=== PATIENT | male | born 1955 | race Caucasian/White ===

== ENCOUNTER 2018-10-12 20:38 | Observation (INO) ==
[2018-10-12] MEDS ORDERED: Aspirin 325 MG Tablet PO ONE (21:37)
--- NOTE | 2018-10-12 21:46 | ED ---
HPI General Chief Complaint: Chest Pain Stated Complaint: chest pain Time Seen by Provider: 10/12/18 21:15 Source: patient Mode of arrival: ambulatory Limitations: no limitations History of Present Illness HPI narrative: 63 year old male with a past medical history of CAD s/p heart attack with stent placement in 2002 presents to the ED for evaluation of chest pain and RUQ pain. Patients states that he started having 3/10 substernal chest pressure while walking from the parking lot and [place] stairs [place] He says he started sweating profusely. He reports that the chest pain lessened with rest but the sweating lingered for much longer. He says that he has a nitroglycerin prescription but that he forgot to pack it when travelled here from [place] for vacation. He is currently being followed by a convention worker in [place] but states he hasn't had a stress test in a long time. He reports taking all his prescribed medications this morning. He reports having RUQ pain this afternoon after he had a shot of scotch. The pain is a 2/10 that has lingered since then. He states this pain has occurred off and on for months. He says that his stomach feels distended but denies nausea, vomiting, and changes in bowel movements. He denies shortness of breath, numbness and tingling. He is currently experiencing no chest pain. Related Data Home Medications Medication Instructions Recorded Confirmed B-complex with vitamin C [Super B 1 tab PO DAILY 10/12/18 10/12/18 Complex-Vitamin C] aspirin 81 mg PO DAILY 10/12/18 10/12/18 atorvastatin 80 mg PO DAILY 10/12/18 10/12/18 cholecalciferol (vitamin D3) 2,000 unit PO DAILY 10/12/18 10/12/18 [Vitamin D3] clopidogrel 75 mg PO DAILY 10/12/18 10/12/18 loratadine [Claritin] 10 mg PO DAILY 10/12/18 10/12/18 metoprolol succinate 25 mg PO DAILY 10/12/18 10/12/18 ramipril 2.5 mg PO DAILY 10/12/18 10/12/18 Previous Rx's Medication Instructions Recorded nitroglycerin 0.4 mg SL Q5M PRN #20 tab 10/12/18 Allergies Allergy/AdvReac Type Severity Reaction Status Date / Time bee venom protein (honey bee) Allergy Anaphylaxis Verified 10/12/18 21:04 [Bee sting] Penicillins Allergy Rash Verified 10/12/18 21:04 shellfish derived Allergy Anaphylaxis Verified 10/12/18 21:26 Review of Systems ROS: all other systems reviewed are negative [facility] Medical History Medical History High cholesterol (Acute) Hypertension (Acute) Surgical History Surgical History H/O discectomy (Acute) H/O heart artery stent (Acute) H/O knee surgery (Acute) History of appendectomy (Acute) Social History Social History Substance History: No History of Abuse Smoking Status: Former smoker Tobacco Type: Cigarettes How Often Do You Have a Drink Containing Alcohol: 2 to 3 times a week Recent Travel in [facility] within the Last 8 Weeks: Yes Recent Out of Country Travel within the Last 8 Weeks: Yes Immunization History Tetanus Immunization: >5 Years Exam Narrative Exam Narrative: GENERAL: Well-appearing in no distress. SKIN: Focused skin assessment warm/dry. HEAD: Atraumatic. Normocephalic. EYES: Pupils equal and round. No scleral icterus. No injection or drainage. ENT: No nasal bleeding or discharge. Mucous membranes pink and moist. Tongue is midline. No uvula deviation. NECK: Trachea midline. No JVD. CARDIOVASCULAR: Regular rate and rhythm. No murmur appreciated. RESPIRATORY: No accessory muscle use. Clear to auscultation. Breath sounds equal bilaterally. GASTROINTESTINAL: Abdomen soft, non-tender, nondistended. Hepatic and splenic margins not palpable. MUSCULOSKELETAL: No obvious deformities. No clubbing. No cyanosis. No edema. Full range of motion of the upper and lower extremities bilaterally. 2+ pulses bilaterally. NEUROLOGICAL: Awake and alert. No obvious cranial nerve deficits. Motor grossly within normal limits. Normal speech. PSYCHIATRIC: Appropriate mood and affect; insight and judgment normal. Course Initial Documented Vital Signs Temperature 98.8 F 10/12/18 21:05 Pulse Rate 87 10/12/18 21:05 Respiratory Rate 16 10/12/18 21:05 Blood Pressure 159/94 H 10/12/18 21:05 Pulse Oximetry 96 10/12/18 21:05 Last Documented Vital Signs Temperature 98.8 F 10/12/18 21:05 Pulse Rate 80 10/12/18 21:36 Respiratory Rate 19 10/12/18 21:29 Blood Pressure 172/99 H 10/12/18 21:29 Pulse Oximetry 95 10/12/18 21:37 Clinical Decision Support HEART Score Questions History: Highly suspicious EKG: Normal Age: 45-64 years Risk Factors: 3 or more Risk Factors or Hx of Atherosclerotic Disease Initial Troponin: Normal Limit Heart Score HEART Score: 5 Medical Decision Making ODILON Attestation ODILON supervised visit: Yes Attestation: I, Dr. Isaac, have reviewed the advance practice practitioner's documentation and am in agreement, met with the patient face to face, made the diagnosis, and the medical decision making was done by me. *My assessment and Findings: Pt is a very pleasant 63 yo M w cp [place] just prior he had a coffee and a five hour energy drink and before that a scotch was imbibed. diaphoresis accompanied and CP. pt's convention worker refused to call in [facility] and advised pt to come to ed. cad dx'd about 15 years prior and a stent was placed then. pt currently carries diagnoses of htn and hld with bmi of 42.5. compliance with aspirin reported along with plavix. ekg shows no twi or flatter or ST elevation. tn < 0.02. story is suspicious for myocardial ischemia. pt agrees to generator operator protocol. last stress test was five years prior. pt is visiting from out of town for the races this weekend. Estimated HEART score is 5. MDM Narrative Medical decision making narrative: 63-year-old male who presents to the ED for evaluation of chest pain. Labs and imaging ordered. aspirin and nitro given. labs and imaging showed no sign of acute disease. Case was discussed my attending Dr. Isaac who evaluated the patient himself and recommends admission to chest pain center. Patient initially was hesitant to be admitted but after his discussion with Dr. Isaac he decided to stay. I think this is reasonable as patient does have multiple comorbidities. Patient agrees to be admitted to chest pain center for chest pain center rule out. Patient was admitted chest pain center by me. Medical Screen Exam Complete: Yes Emergency Medical Condition: Yes Differential Diagnosis Differential Diagnosis: Acute chest pain versus ACS versus an STEMI versus gallbladder disease versus pancreatitis Medical Records Medical records reviewed: Yes I reviewed the patient's medical records. Lab Data Lab results reviewed: Yes I reviewed the patient's lab results. Result diagrams: 10/12/18 21:33 10/12/18 21:33 Lab Results 10/12/18 10/12/18 10/12/18 Range/Units 21:33 21:33 21:33 WBC 9.0 (4.0-11.0) th/mm3 RBC 5.06 (4.50-5.90) mil/mm3 Hgb 16.0 (13.0-17.0) gm/dL Hct 46.3 (39.0-51.0) % MCV 91.4 (80.0-100.0) fL MCH 31.5 (27.0-34.0) pg MCHC 34.5 (32.0-36.0) % RDW 13.6 (11.6-17.2) % Plt Count 212 (150-450) th/mm3 MPV 7.6 (7.0-11.0) fL Neut % (Auto) 63.7 (16.0-70.0) % Lymph % (Auto) 23.4 (9.0-44.0) % [place] % (Auto) 9.7 H (0.0-8.0) % Eos % (Auto) 2.7 (0.0-4.0) % Baso % (Auto) 0.5 (0.0-2.0) % Neut # (Auto) 5.7 (1.8-7.7) th/mm3 Lymph # (Auto) 2.1 (1.0-4.8) th/mm3 [place] # (Auto) 0.9 (0.0-0.9) th/mm3 Eos # (Auto) 0.2 (0.0-0.4) th/mm3 Baso # (Auto) 0.0 (0.0-0.2) th/mm3 WBC Differential . Differential Comment Auto diff final PT (9.8-11.6) sec INR Ratio APTT (23.4-31.7) sec Sodium 142 (136-145) meq/L Potassium 4.2 (3.5-5.1) meq/L Chloride 107 (98-107) meq/L Carbon Dioxide 28.5 (21.0-32.0) meq/L Anion Gap 7 (5-15) meq/L BUN 21 H (7-18) mg/dL Creatinine 1.09 (0.60-1.30) mg/dL Estimated GFR 68 L (>89) mL/min Random Glucose 101 (74-106) mg/dL Calcium 9.5 (8.5-10.1) mg/dL Total Bilirubin 0.6 (0.2-1.0) mg/dL AST 27 (15-37) U/L ALT 60 (12-78) U/L Alkaline Phosphatase 73 (45-117) U/L Troponin I Less than 0.02 L (0.02-0.05) ng/mL B-Natriuretic Peptide 16 (0-100) pg/mL Total Protein 8.0 (6.4-8.2) g/dL Albumin 4.4 (3.4-5.0) g/dL Lipase 182 (73-393) U/L Serum Alcohol Less than 3 (0-5) mg/dL 10/12/18 Range/Units 21:33 WBC (4.0-11.0) th/mm3 RBC (4.50-5.90) mil/mm3 Hgb (13.0-17.0) gm/dL Hct (39.0-51.0) % MCV (80.0-100.0) fL MCH (27.0-34.0) pg MCHC (32.0-36.0) % RDW (11.6-17.2) % Plt Count (150-450) th/mm3 MPV (7.0-11.0) fL Neut % (Auto) (16.0-70.0) % Lymph % (Auto) (9.0-44.0) % [place] % (Auto) (0.0-8.0) % Eos % (Auto) (0.0-4.0) % Baso % (Auto) (0.0-2.0) % Neut # (Auto) (1.8-7.7) th/mm3 Lymph # (Auto) (1.0-4.8) th/mm3 [place] # (Auto) (0.0-0.9) th/mm3 Eos # (Auto) (0.0-0.4) th/mm3 Baso # (Auto) (0.0-0.2) th/mm3 WBC Differential Differential Comment PT 10.2 (9.8-11.6) sec INR 1.0 Ratio APTT 26.2 (23.4-31.7) sec Sodium (136-145) meq/L Potassium (3.5-5.1) meq/L Chloride (98-107) meq/L Carbon Dioxide (21.0-32.0) meq/L Anion Gap (5-15) meq/L BUN (7-18) mg/dL Creatinine (0.60-1.30) mg/dL Estimated GFR (>89) mL/min Random Glucose (74-106) mg/dL Calcium (8.5-10.1) mg/dL Total Bilirubin (0.2-1.0) mg/dL AST (15-37) U/L ALT (12-78) U/L Alkaline Phosphatase (45-117) U/L Troponin I (0.02-0.05) ng/mL B-Natriuretic Peptide (0-100) pg/mL Total Protein (6.4-8.2) g/dL Albumin (3.4-5.0) g/dL Lipase (73-393) U/L Serum Alcohol (0-5) mg/dL Imaging Data Attestation: I personally reviewed and interpreted this imaging study as follows : Radiologist's impression: Chest X-Ray 10/12/18 21:30 CONCLUSION: The lungs are clear. ECG Data EKG Prior to Arrival: No Attestation: I personally reviewed and interpreted this ECG as follows: Prior ECG tracings: not available for review Interpretation: Normal sinus rhythm, 83 bpm, normal intervals, P mitrale. Incomplete right bundle branch block Discharge Plan Discharge Disposition Patient Disposition: ED Admit(ED Internal Use Only) Discharge Condition Condition: Stable Discharge Order Discharge Orders: ED Use Only Admit Order (Routine); Ordered 10/12/18 Ordered By: Rinku Jasso Discharge Details Diagnosis: Chest pain, rule out acute myocardial infarction Physicians Team ED Provider: Taz Isaac ED Midlevel Provider: Rinku Jasso Primary Care Provider: Primary Care Physici,Yenifer Rxs /Orders / Referrals /Forms Prescriptions: New nitroglycerin 0.4 mg tablet, sublingual 0.4 mg SL Q5M PRN (Reason: chest pain) Qty: 20 RF: 0 No Action atorvastatin 80 mg Tablet 80 mg PO DAILY RF: 0 clopidogrel 75 mg Tablet 75 mg PO DAILY RF: 0 ramipril 2.5 mg Capsule 2.5 mg PO DAILY RF: 0 aspirin 81 mg Tablet,Chewable 81 mg PO DAILY RF: 0 metoprolol succinate 25 mg Tablet Extended Release 24 Hr 25 mg PO DAILY RF: 0 loratadine [Claritin] 10 mg Tablet 10 mg PO DAILY RF: 0 B-complex with vitamin C [Super B Complex-Vitamin C] Tablet 1 tab PO DAILY RF: 0 cholecalciferol (vitamin D3) [Vitamin D3] 2,000 unit Capsule 2,000 unit PO DAILY RF: 0 Discharge Instructions Patient Printed Instructions: Chest Pain (ED) Additional Instructions: Take your medications as prescribed. Follow-up with primary care doctor. See ED if worsening symptoms. Status ED Status: Admitted Observation Patient
[2018-10-12 21:51] LABS: Baso % (Auto) 0.5 % (0.0-2.0); Eos # (Auto) 0.2 th/mm3 (0.0-0.4); Eos % (Auto) 2.7 % (0.0-4.0); Hematocrit 46.3 % (39.0-51.0); Lymph # (Auto) 2.1 th/mm3 (1.0-4.8); Lymph % (Auto) 23.4 % (9.0-44.0); Mean Corpuscular HGB Conc 34.5 % (32.0-36.0); Mean Corpuscular Hemoglobin 31.5 pg (27.0-34.0); Mean Corpuscular Volume 91.4 fL (80.0-100.0); Mean Platelet Volume 7.6 fL (7.0-11.0); Mono # (Auto) 0.9 th/mm3 (0.0-0.9); Mono % (Auto) 9.7 % (0.0-8.0); Neut # (Auto) 5.7 th/mm3 (1.8-7.7); Neut % (Auto) 63.7 % (16.0-70.0); Platelet Count 212 th/mm3 (150-450); Red Blood Count 5.06 mil/mm3 (4.50-5.90); Red Cell Distribution Width 13.6 % (11.6-17.2)
--- NOTE | 2018-10-12 21:51 | XR ---
EXAM DATE: 10/12/2018 9:48 PM EST AGE/SEX: 63 years / Male INDICATIONS: Chest pain. CLINICAL DATA: This is the patient's initial encounter. Patient reports that signs and symptoms have been present for 1 day and indicates a pain score of 4/10. MEDICAL/SURGICAL HISTORY: Hypertension. Myocardial infarction. Appendectomy. Coronary artery stent. C-spine. Right knee. COMPARISON: No prior exams available for comparison. FINDINGS: A single AP view of the chest demonstrates the lungs to be symmetrically aerated without evidence of mass, infiltrate or effusion. The cardiomediastinal contours are unremarkable. Osseous structures a re intact. CONCLUSION: The lungs are clear. Electronically signed by: Reza Olmstead MD Board Certified Radiologist 10/12/2018 9:50 PM EST
[2018-10-12 22:06] LABS: Alanine Aminotransferase 60 U/L (12-78); Albumin 4.4 g/dL (3.4-5.0); Anion Gap 7 meq/L (5-15); Aspartate Aminotransferase 27 U/L (15-37); Blood Urea Nitrogen 21 mg/dL (7-18); Calcium 9.5 mg/dL (8.5-10.1); Carbon Dioxide 28.5 meq/L (21.0-32.0); Chloride 107 meq/L (98-107); Glomerular Filtration Rate 68 mL/min (>89); Glucose,Random 101 mg/dL (74-106); Lipase 182 U/L (73-393); Potassium 4.2 meq/L (3.5-5.1); Sodium 142 meq/L (136-145)
[2018-10-12 22:08] LABS: Activated Partial Thrombo Time 26.2 sec (23.4-31.7); Prothrombin Time 10.2 sec (9.8-11.6)
[2018-10-12 22:10] LABS: Alkaline Phosphatase 73 U/L (45-117)
[2018-10-12] MEDS ORDERED: Acetaminophen 500 MG Tablet PO PRN (23:32)
[2018-10-13 01:14] LABS: Creatine Kinase 100 U/L (39-308)
[2018-10-13 03:35] VITALS: O2SAT 96
[2018-10-13 05:24] LABS: Creatine Kinase 82 U/L (39-308)
[2018-10-13 07:27] VITALS: BP 110/76; PULSE 61; RESP 18; TEMP 98.3
[2018-10-13] MEDS ORDERED: Regadenoson Inj 0.4 MG/5 ML Syringe IV.PUSH ONE (08:05)
--- NOTE | 2018-10-13 08:52 | P.HPCA ---
History of Present Illness Primary Care Physician: No Primary Care Physician Chief Complaint: Chest pain History of Present Illness: This is a 63-year-old male with history of CAD setting of stent placed in 2002 [place] that presents to ED complaining of a chest discomfort that began while he was walking up bleachers at the speed [place] the races. He describes it as a pressure with diaphoresis. Discomfort was in the center of his chest and did not radiate. Lasted about an hour. 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 Believes last stress test has been a couple years ago. Past medical history: CAD with stent in 2002. Hypertension and hyperlipidemia. Denies diabetes. Family history: Denies family history of CAD. Social history: Patient quit smoking cigarettes 20 years ago. - Diagnosis (1) Chest pain (2) History of coronary artery disease (3) History of heart artery stent (4) Hypertension (5) Hyperlipidemia Review of Systems General: Patient denies fevers, chills, and recent travel. HEENT: Patient denies headache, sore throat, difficulty swallowing. Cardiovascular: Has the chest discomfort as mentioned above. Denies sensation of heart beating rapidly or irregularly. No syncope. He was diaphoretic. Respiratory: Denies shortness of breath or inspirational chest discomfort. Denies coughing wheezing or hemoptysis. GI: Patient denies nausea, vomiting, diarrhea, abdominal pain, bloody stools. Musculoskeletal: Patient denies joint pain or edema. Denies calf pain or edema. Neurovascular: Patient denies numbness, tingling, weakness in extremities. Denies headache. Endocrine: Denies polyuria and polydipsia. Hematologic: Denies easy bruising. Skin: Denies rash or itching. PMFSH - History History Provided By: Patient - Medical History Medical History: Medical History (Last Reviewed 10/12/18 @ 21:42 by SHARRI Kevin) High cholesterol Hypertension - Surgical History Surgical History: Surgical History (Last Reviewed 10/12/18 @ 21:42 by SHARRI Kevin) H/O discectomy H/O heart artery stent H/O knee surgery History of appendectomy - Tobacco History Second Hand Smoke Exposure: No Tobacco Use In Past 30 Days: No Smoking Status: Former smoker Tobacco Type: Cigarettes - Alcohol History How Often Do You Have a Drink Containing Alcohol: 4 or more times a week - Substance Use History Substance History: No History of Abuse - Travel History Recent Travel in the [place] Within the Last 8 Weeks: Yes Recent Travel Out of the Country Within the Last 8 Weeks: Yes - Immunization History Tetanus Immunization: >5 Years Medications and Allergies Active Medications: Active Medications Acetaminophen (Tylenol) 500 mg PO Q4H PRN PRN Reason: HEADACHE Hydrocodone Bitart/Acetaminophen ([place] 7.5/325) 1 tab PO Q4H PRN PRN Reason: PAIN SCALE 1 TO 7 Albuterol (Albuterol Neb (Prn)) 2.5 mg NEB UNSCH PRN PRN Reason: SHORTNESS OF BREATH/WHEEZING Albuterol (Duoneb Neb (Prn)) 1 ampul NEB UNSCH PRN PRN Reason: SHORTNESS OF BREATH/WHEEZING Aspirin (Aspirin Chew) 81 mg PO DAILY [facility] Atorvastatin Calcium (Lipitor) 80 mg PO DAILY [facility] Clopidogrel Bisulfate (Plavix) 75 mg PO DAILY [facility] Metoprolol Succinate (Toprol Xl) 25 mg PO DAILY [facility] Ramipril (Altace) 2.5 mg PO DAILY [facility] Sodium Chloride (Ns Flush) 2 ml IV.FLUSH BID [facility] Sodium Chloride (Ns Flush) 2 ml IV.FLUSH PRN PRN PRN Reason: FLUSH AFTER USING IV ACCESS Allergies Allergy/AdvReac Type Severity Reaction Status Date / Time bee venom protein (honey bee) Allergy Anaphylaxis Verified 10/12/18 21:04 [Bee sting] Penicillins Allergy Rash Verified 10/12/18 21:04 shellfish derived Allergy Anaphylaxis Verified 10/12/18 21:26 Home Medications Medication Instructions Recorded Confirmed Type B-complex with vitamin C [Super B 1 tab PO DAILY 10/12/18 10/12/18 History Complex-Vitamin C] aspirin 81 mg PO DAILY 10/12/18 10/12/18 History atorvastatin 80 mg PO DAILY 10/12/18 10/12/18 History cholecalciferol (vitamin D3) 2,000 unit PO DAILY 10/12/18 10/12/18 History [Vitamin D3] clopidogrel 75 mg PO DAILY 10/12/18 10/12/18 History loratadine [Claritin] 10 mg PO DAILY 10/12/18 10/12/18 History metoprolol succinate 25 mg PO DAILY 10/12/18 10/12/18 History ramipril 2.5 mg PO DAILY 10/12/18 10/12/18 History Exam Vital signs: Vital Signs 10/12/18 21:05 10/12/18 21:29 10/12/18 21:36 Temperature 98.8 F Pulse Rate 87 83 80 Respiratory Rate 16 19 Blood Pressure 159/94 H 172/99 H Pulse Oximetry 96 95 10/12/18 21:37 10/12/18 21:46 10/13/18 01:58 Temperature Pulse Rate 80 Respiratory Rate 16 16 Blood Pressure 138/86 Pulse Oximetry 95 96 10/13/18 02:32 10/13/18 03:35 10/13/18 04:00 Temperature 97.6 F 97.7 F Pulse Rate 64 69 58 L Respiratory Rate 16 16 Blood Pressure 126/78 114/72 Pulse Oximetry 98 96 10/13/18 06:00 10/13/18 07:06 10/13/18 07:25 Temperature 98.3 F Pulse Rate 66 64 61 Respiratory Rate 18 Blood Pressure 110/76 Pulse Oximetry 96 Intake & Output 10/12/18 10/13/18 10/13/18 18:59 06:59 18:59 Output Total Balance - Weight 138.346 kg Output: Urine Narrative: GENERAL: This is a well-nourished, well-developed patient, in no apparent distress. Patient speaks in clear complete sentences. Patient is pleasant. HEENT: Head is atraumatic and normocephalic. Neck is supple without lymphadenopathy and trachea is midline. No JVD or carotid bruits. CARDIOVASCULAR: Regular rate and rhythm without murmurs, gallops, or rubs. RESPIRATORY: Clear to auscultation. Breath sounds equal bilaterally. No wheezes , rales, or rhonchi. Chest wall is nontender. No use of accessory muscles. GASTROINTESTINAL: Abdomen is nontender, nondistended. Abdomen soft. No obvious pulsatile mass or bruit. No CVA tenderness. Strong femoral pulses bilaterally. Normal bowel sounds in all quadrants. MUSCULOSKELETAL: Patient is moving upper and lower extremities freely. No calf tenderness or edema, no Homans sign. Strong pulses in upper and lower extremities. NEUROLOGICAL: Patient is alert and oriented. Cranial nerves 2-12 are grossly intact. No focal deficits and speech is clear. SKIN: No rash and turgor is normal. Results 10/12/18 21:33 02/14/19 21:33 Cardiac Enzymes 10/12/18 10/12/18 10/13/18 Range/Units 21:33 21:33 00:14 AST 27 (15-37) U/L Troponin I Less than 0.02 L Less than 0.02 L (0.02-0.05) ng/mL B-Natriuretic Peptide 16 (0-100) pg/mL 10/13/18 Range/Units 03:15 AST (15-37) U/L Troponin I Less than 0.02 L (0.02-0.05) ng/mL B-Natriuretic Peptide (0-100) pg/mL Coagulation 10/12/18 10/12/18 Range/Units 21:33 21:33 PT 10.2 (9.8-11.6) sec APTT 26.2 (23.4-31.7) sec B-Natriuretic Peptide 16 (0-100) pg/mL CBC 10/12/18 Range/Units 21:33 WBC 9.0 (4.0-11.0) th/mm3 RBC 5.06 (4.50-5.90) mil/mm3 Hgb 16.0 (13.0-17.0) gm/dL Hct 46.3 (39.0-51.0) % Plt Count 212 (150-450) th/mm3 Neut # (Auto) 5.7 (1.8-7.7) th/mm3 Lymph # (Auto) 2.1 (1.0-4.8) th/mm3 [place] # (Auto) 0.9 (0.0-0.9) th/mm3 Eos # (Auto) 0.2 (0.0-0.4) th/mm3 Baso # (Auto) 0.0 (0.0-0.2) th/mm3 Comprehensive Metabolic Panel 10/12/18 Range/Units 21:33 Sodium 142 (136-145) meq/L Potassium 4.2 (3.5-5.1) meq/L Chloride 107 (98-107) meq/L Carbon Dioxide 28.5 (21.0-32.0) meq/L BUN 21 H (7-18) mg/dL Creatinine 1.09 (0.60-1.30) mg/dL Calcium 9.5 (8.5-10.1) mg/dL AST 27 (15-37) U/L ALT 60 (12-78) U/L Alkaline Phosphatase 73 (45-117) U/L Total Protein 8.0 (6.4-8.2) g/dL Albumin 4.4 (3.4-5.0) g/dL Intake and Output 10/12/18 10/13/18 10/13/18 22:59 06:59 14:59 Output Total Balance - Output: Urine Other: Weight 138.346 kg - Imaging and Cardiology Imaging: Impressions Chest X-Ray 10/12/18 21:30 CONCLUSION: The lungs are clear. EKG interpretations - EKG EKG shows: sinus rhythm (EKGs are sinus rhythm without significant ST segment depressions or elevations.) Caprini VTE Risk Assessment Caprini VTE Risk Assessment: Moderate/High Risk (score >= 2) Caprini Risk Assessment Model: Point Value = 1 Point Value = 2 Point Value = 3 Point Value = 5 Age 41-60 Minor surgery BMI > 25 kg/m2 Swollen legs Varicose veins or History of unexplained or recurrent spontaneous Oral contraceptives or hormone replacement Sepsis (< 1 month) Serious lung disease, including pneumonia (< 1 month) Abnormal pulmonary function Acute myocardial infarction Congestive heart failure (< 1 month) History of inflammatory bowel disease Medical patient at bed rest Age 61-74 Arthroscopic surgery Major open surgery (> 45 min) Laparoscopic surgery (> 45 min) Malignancy Confined to bed (> 72 hours) Immobilizing plaster cast Central venous access Age >= 75 History of VTE Family history of VTE Factor V Leiden Prothrombin [id number] Lupus anticoagulant Anticardiolipin antibodies Elevated serum homocysteine Heparin-induced thrombocytopenia Other congenital or acquired thrombophilia Stroke (< 1 month) Elective arthroplasty Hip, pelvis, or leg fracture Acute spinal cord injury (< 1 month) Prophylaxis Regimen: Total Risk Factor Score Risk Level Prophylaxis Regimen 0-1 Low Early ambulation 2 Moderate Order ONE of the following: *Sequential Compression Device (SCD) *Heparin 5000 units SQ BID 3-4 Higher Order ONE of the following medications: *Heparin 5000 units SQ TID *Enoxaparin/Lovenox 40 mg SQ daily (WT < 150 kg, CrCl > 30 mL/min) *Enoxaparin/Lovenox 30 mg SQ daily (WT < 150 kg, CrCl > 10-29 mL/min) *Enoxaparin/Lovenox 30 mg SQ BID (WT < 150 kg, CrCl > 30 mL/min) AND/OR *Sequential Compression Device (SCD) 5 or more Highest Order ONE of the following medications: *Heparin 5000 units SQ TID (Preferred with Epidurals) *Enoxaparin/Lovenox 40 mg SQ daily (WT < 150 kg, CrCl > 30 mL/min) *Enoxaparin/Lovenox 30 mg SQ daily (WT < 150 kg, CrCl > 10-29 mL/min) *Enoxaparin/Lovenox 30 mg SQ BID (WT < 150 kg, CrCl > 30 mL/min) AND *Sequential Compression Device (SCD) Assessment and Plan - Assessment (1) Chest pain Code(s): R07.9 - Chest pain, unspecified Status: Acute (2) History of coronary artery disease Code(s): Z86.79 - Personal history of other diseases of the circulatory system Status: Acute (3) History of heart artery stent Code(s): Z95.5 - Presence of coronary angioplasty implant and graft Status: Acute (4) Hypertension Code(s): I10 - Essential (primary) hypertension Status: Acute (5) Hyperlipidemia Code(s): E78.5 - Hyperlipidemia, unspecified Status: Acute - Plan * Chest pain: Patient has had serial cardiac enzymes and EKGs for ruling out purposes and has been seen by Dr. Gordillo of cardiology in the chest pain center. A Rosalino protocol ETT was to be performed however patient declines this and would rather have a Lexiscan. Lexiscan has been ordered, patient will be discharged home if the stress test is nonischemic with instructions to follow- up with his metal machine operator and PCP. Return to ED for interval issues. * History of CAD: Patient has had a stent in 2002. This will be reassessed with stress testing. He will need to resume his medication and follow-up with his metal machine operator. * Hypertension: Continue medication. * Hyperlipidemia: Continue medication. Patient is stable at this time. He is agreeable to this plan. H&P: Quality - VTE Deep Vein Thrombosis/Pulmonary Embolism Present on Admission: No
[2018-10-13] MEDS ORDERED: Ramipril 2.5 MG Capsule PO SCH (09:00)
--- NOTE | 2018-10-13 10:23 | NM ---
EXAM DATE: 10/13/2018 10:11 AM EST AGE/SEX: 63 years / Male INDICATIONS:Angina. . Substernal chest pain and RUQ pain. CLINICAL DATA: This is the patient's initial encounter. Patient reports that signs and symptoms have been present for 1 day and indicates a pain score of 3/10. MEDICAL/SURGICAL HISTORY: Hypercholesterolemia. Hypertension. Coronary artery stent. CABG. Di scectomy. COMPARISON: No prior exams available for comparison. DOSE: 12 mCi Tc 99m Myoview at rest 35 mCi [id number] at stress 0.4 mg Lexiscan STRESS SYMPTOMS: Dyspnea. EJECTION FRACTION: 56 % TECHNIQUE: The patient underwent pharmacologic stress with infusion of prescribed dose. Continuous ECG tracing was monitored during stress. Gated SPECT imaging was performed after stress and conventi onal SPECT imaging was performed at rest. The examination was performed on a SPECT/CT scanner, both attenuation and non-corrected datasets were reviewed. FINDINGS: Distribution: The maximum perfused segment at stress is in the septal wall. Perfusion Study: There is mild decreased activity in the apex and inferoapical segment which correl ates with diaphragmatic attenuation seen on the raw data images. No reversible perfusion defects seen . Regional perfusion in the other myocardial segments is within 25%. The sum stress score is 4 (upper limits normal). Gated Study: There are intact wall motion and wall thickening without hypokinetic or dyskinetic segm ents. The ejection fraction is calculated at 56%. RISK CATEGORY: Low (<1% Annual Mortality Rate) CONCLUSION: 1. No evidence of stress-induced ischemia. 2. Intact wall motion with 56% ejection fraction. Electronically signed by: Reza Olmstead MD Board Certified Radiologist 10/13/2018 10:22 AM EST
--- NOTE | 2018-10-13 17:17 | TR ---
Date Performed: 10/13/2018 Time Performed: 09:29:36 DOCTOR: Steffanie Gordillo DRUG LIST: CLINICAL HISTORY: REASON FOR TEST: REASON FOR ENDING: OBSERVATION: CONCLUSION: Lexiscan stress test was performed under standard four minute protocol. Radionuclid e was injected one minute prior to ending the test. No electrocardiographic abormalities were present to suggest ischemia. Nuclear imaging and interpretation are pending. COMMENTS: Lexiscan stress test was performed under standard four minute protocol. Radionuclide was injected one minute prior to ending the test. No electrocardiographic abormalities were present t o suggest ischemia. Nuclear imaging and interpretation are pending.
--- NOTE | 2018-10-13 17:18 | ECG ---
Date Performed: 10/13/2018 Time Performed: 00:12:09 PTAGE: 63 years EKG: Sinus rhythm MARKED LEFT AXIS DEVIATION LOW QRS VOLTAGE IN PRECORDIAL LEADS PATTERN CONSISTENT WITH PULMONARY DIS EASE INCOMPLETE RIGHT BUNDLE BRANCH BLOCK ABNORMAL ECG Since PREVIOUS TRACING , no significant change noted PREVIOUS TRACIN10/12/2018 21.16 DOCTOR: Steffanie Gordillo Interpretating Date/Time 10/13/2018 17:16:46
--- NOTE | 2018-10-13 17:18 | ECG ---
Date Performed: 10/13/2018 Time Performed: 03:32:17 PTAGE: 63 years EKG: Sinus rhythm PATTERN CONSISTENT WITH PULMONARY DISEASE INCOMPLETE RIGHT BUNDLE BRANCH BLOCK LEFT ANTERIOR FASCICU LAR BLOCK ABNORMAL ECG Since PREVIOUS TRACING , no significant change noted PREVIOUS TRACIN10/13/2018 00.12 DOCTOR: Steffanie Gordillo Interpretating Date/Time 10/13/2018 17:16:34
--- NOTE | 2018-10-13 17:19 | ECG ---
Date Performed: 10/12/2018 Time Performed: 21:16:35 PTAGE: 63 years EKG: Sinus rhythm MARKED LEFT AXIS DEVIATION PATTERN CONSISTENT WITH PULMONARY DISEASE INCOMPLETE RIGHT BUNDLE BRANCH BLOCK ABNORMAL ECG NO PREVIOUS TRACING DOCTOR: Steffanie Gordillo Interpretating Date/Time 10/13/2018 17:17:20
== END 2018-10-13 11:34 | disposition home or self-care (01) ==
LOC: NEPE 20:38 → NEDA 20:38 → NEPFCDU 10-13 02:06
PROVIDERS: ADMIT Internal Medicine Interventional Cardiology; ATTEND Internal Medicine Interventional Cardiology
DX: Z79.02 Long term (current) use of antithrombotics/antiplatelets; I25.2 Old myocardial infarction; I10 Essential (primary) hypertension; Z79.82 Long term (current) use of aspirin; R07.9 Chest pain, unspecified; Z88.0 Allergy status to penicillin; Z86.79 Personal history of other diseases of the circulatory system; Z95.5 Presence of coronary angioplasty implant and graft; E78.5 Hyperlipidemia, unspecified; F17.210 Nicotine dependence, cigarettes, uncomplicated; E78.00 Pure hypercholesterolemia, unspecified
CPT/HCPCS: 71010; 71045; 78452; 80053; 80307; 82550; 83520; 83690; 83880; 84484; 85025; 85610; 85730; 93005; 93017; 99285; A9502; G0378; J2785; Q9969